=== PATIENT | male | born 1955 | race Caucasian/White ===

== ENCOUNTER → 2016-04-03 | Day surgery (SDC) | payer OTHER ==
[2012-10-27 03:06] VITALS: BMI 29.1
--- NOTE | 2016-04-02 19:22 | SC.ANESPOS ---
Post-Anesthesia Note LOC: [facility] Calling Post-Anesthesia Assessment: Awake, Returned to Baseline, Hemodynamically Stable , Pain Control Adequate Phase I & II Recovery Complete: Yes Apparent Anesthesia Complication: No : N PACU Discharge Time: 12:30 - Vital Signs Blood Pressure: 134/78 Pulse: 78 Resp Rate: 20 O2 Sat: 96 Temp: 99.2 F - Comments Anesthesia Discharge Time Report Time 12:30
[~2016-04-03] MED LIST: Acetaminophen, Intravenous 1,000 MG/100 ML IVBOT IV ONE; BUPIVACAINE 0.25%-EPINEPHRINE 1:200,000 30 ML ONE; DEXAMETHASONE 4 MG/ML VIAL IV ONE; FENTANYL 100 MCG/2 ML VIAL IV PRN; FENTANYL 250 MCG/5 ML VIAL IV ONE; GLYCOPYRROLATE 1 MG VIAL IM ONE; HYDROmorphone 1 MG INJECTION IV PRN; HYDROmorphone 1 MG INJECTION ONE; LABETALOL 20 MG/4 ML SYRINGE IV PRN; LIDOCAINE 4% 5 ML AMPULE NEB ONE; Levofloxacin 500 mg/100 ml D5W 500 MG/100 ML RTU IV ONE; MEPERIDINE 25 MG/ML TUBEX IV PRN; METOCLOPRAMIDE 10 MG/2 ML VIAL IV ONE; MIDAZOLAM 2 MG/2 ML VIAL IV ONE; NEOSTIGMINE 1 MG/1 ML (1:1000) INJ 10 ML MDV IM ONE; ONDANSETRON HCL 4 MG ODT TAB PO PRN; ONDANSETRON HCL 4 MG/2 ML VIAL IV ONE; ONDANSETRON HCL 4 MG/2 ML VIAL IV PRN; PROMETHAZINE 25 MG/ML VIAL IV PRN; PROPOFOL 200 MG/20 ML VIAL IV ONE; ROCURONIUM 50 MG/5 ML VIAL IV ONE; TRAMADOL 37.5 MG/ACETAMINOPHEN 325 MG TAB PO PRN; hydrALAZINE 20 MG/ML VIAL IV PRN
--- NOTE | 2016-04-03 07:53 | HIM.ANES ---
Anesthesia Evaluation & Plan Diagnoses: INCISIONAL HERNIA WITHOUT OBSTRUCTION OR GANGRENE (04/03/16) - Focused Review of Systems Cardiac History: Yes: Hx Cardiac Disorders, Hx Abnormal Cholesterol/ Hyperlipidemia HEENT: Yes: Hx Vision Problem (WEARS GLASSES), Hx Ear Problem (RINGING IN EAR), Other HEENT Problems Hx Other HEENT Surgery: SINUS SURGERY X3 Hx Other HEENT Problems: CHRONIC SINNUSITIS Respiratory: Yes: Hx Asthma, Hx Snoring Gastrointestinal: Yes: Hx Gastroesophageal Reflux Disease, Hx Gastrointestinal Disorders, Hx Colonoscopy (03/2014) Neurological/Musculoskeletal: Yes: Hx Back Pain (WITH HEAVY LOAD) No: Hx Neurological Disorders Psychological: Yes Hx Anxiety (SON 5 YEARS AGO.), Yes Hx Depression, Yes Hx Mental/Emotional Disorders Blood/Autoimmune: No: Hx AIDS, Hx Hepatitis (type) Smoking Status: Never smoker Other Surgical History: SINUS SURGERY X3 2013 COLON RESECTION AND UMBILICAL HERNIA REPAIR - Focused Physical Exam NPO since: after Midnight Mallampati: Class II Thyromental Distance: Greater than 3 Neck: Full Range of Motion Cardiovascular/Chest: Normal Respiratory: Lungs clear Any problems with anesthesia, including nausea and vomiting?: Yes (N&V) Does the patient have a history of Motion Sickness-: Yes Other: Allergies Allergy/AdvReac Type Severity Reaction Status Date / Time codeine Allergy Severe Nausea/Vomi Verified 04/03/16 07:45 ting morphine Allergy Severe Nausea/Vomi Verified 04/03/16 07:45 ting cefuroxime axetil Allergy Intermediate Rash-Genera Verified 04/03/16 07:45 [From Ceftin] lized clarithromycin [From Biaxin] Allergy Intermediate Rash-Genera Verified 04/03/16 07:45 lized ascorbic acid [From MoviPrep] Allergy Headache Verified 04/03/16 07:47 grape Allergy Hives* Verified 04/03/16 07:45 polyethylene glycol 3350 Allergy Headache Verified 04/03/16 07:47 [From MoviPrep] potassium chloride* Allergy Headache Verified 04/03/16 07:47 [From MoviPrep] sodium chloride Allergy Headache Verified 04/03/16 07:47 [From MoviPrep] sodium sulfate Allergy Headache Verified 04/03/16 07:47 [From MoviPrep] ARTIFICIAL SWEETNERS Allergy Headache Uncoded 04/03/16 07:45 Home Medications Medication Instructions Recorded Last Taken Type Albuterol Sulfate [Proventil Hfa] 2 puff INH Q6-8H PRN 10/24/12 10/11/12 History Azelastine HCl [Astelin] 1 spray ANALI DAILY 10/24/12 10/25/14 12:00 History Budesonide/Formoterol Fumarate 2 puff INH BID 10/24/12 10/25/14 23:30 History [Symbicort 160-4.5 Mcg Inhaler] Cholecalciferol (Vitamin D3) 2,000 unit PO DAILY 10/24/12 10/23/12 12:00 History [Vitamin D3 (cholecalciferol)] Fenofibrate 160 mg PO DAILY 10/24/12 10/25/14 23:30 History Guaifenesin/Phenylephrine HCl 1 each PO Q4H PRN 10/24/12 3 Days Ago History [Guaifenesin-Phenylephrine Tab] Ibuprofen 400 mg PO Q4-6H PRN 10/24/12 10/25/14 12:00 History Mometasone Furoate [Nasonex] 1 spray NS .EVENING 10/24/12 10/25/14 23:30 History Omeprazole 20 mg PO DAILY 10/24/12 10/25/14 23:30 History Zafirlukast [Accolate] 20 mg PO BID 10/24/12 10/25/14 23:30 History Alprazolam [Xanax] 1 mg PO HS PRN 10/23/14 10/22/14 History Diazepam [Valium] 10 mg PO BID PRN 03/30/16 Unknown History Height and Weight Patient's height 5 ft 10 in Patient's weight 87.09 kg BMI 29.1 - Anesthetic Plan Anesthesia Type: General ASA Class: 3 -: I have examined this patient and reviewed the medical record. The patient has been assessed prior to anesthesia. Risks and benefits of anesthesia and anesthetic technique options have been discussed and all questions answered. The patient accepts the risk and desires me to proceed with the planned anesthetic.
--- NOTE | 2016-04-03 10:40 | HIMOPRPT ---
DATE OF PROCEDURE: 04/03/16 PREOPERATIVE DIAGNOSES: Recurrent ventral incisional hernia. POSTOPERATIVE DIAGNOSES: Recurrent ventral incisional hernia. PROCEDURES: Laparoscopic repair of recurrent ventral incisional hernia. SURGEON: Dickson Myrick MD ANESTHESIA: General. COMPLICATIONS: None. ESTIMATED BLOOD LOSS: Minimal. ANTIBIOTICS: Preoperative antibiotics given. INDICATIONS: The patient is a very pleasant 61-year-old male who had been found to have a recurrent ventral incisional hernia. We felt he would benefit from hernia repair and explained the risks and benefits of this to him. He understood the risk of infection, bleeding and anesthesia as well as a well- known risk of recurrence and bowel injury. He understood the risk of mesh prostheses. The patient agreed was brought for the above-mentioned procedure. OPERATIVE NOTE: Patient was brought to the operating room and placed on the operating table in the supine position. After adequate amount of general anesthesia he was prepped and draped in sterile manner. When given the okay by anesthesia after appropriate time-out an Optiview trocar was placed in the left upper quadrant without any problems. Two other trocars were placed on the left side 1 was placed on the right. We used Harmonic scalpel dissection to take down the falciform ligament. There were several hernia defects we chose a large piece of surgeon mesh and placed stay sutures in the mesh and then placed this in the perineum without any problems. We used a suture Passer to bring the stay sutures out and tied these down a fixing the mesh in good position. We then used secure strap tacks throughout and then secure strap tacks around the edges. With the mesh in excellent position and overlap of over 4 cm circumferentially around the defect we felt we had excellent repair. We went ahead after assuring hemostasis placed Seprafilm in the usual manner. The trocars were then removed and a 1. Vicryl suture was used to bring the 12 mm trocar site together. All wounds were irrigated and brought together with 4 0 Monocryls and then Dermabond tissue adhesive was applied. The patient was awoke and taken recover room in excellent condition with correct sponge counts needle counts.
[2016-04-03 12:37] VITALS: TEMP 99.2
[2016-04-03 14:48] VITALS: PULSE 78
--- NOTE | 2016-04-03 15:42 | SC.ANESPOS ---
Post-Anesthesia Note LOC: Fully Awake Post-Anesthesia Assessment: Awake, Returned to Baseline, Hemodynamically Stable , Pain Control Adequate Phase I & II Recovery Complete: Yes Apparent Anesthesia Complication: No : N PACU Discharge Time: 12:30 - Vital Signs Blood Pressure: 134/78 Pulse: 78 Resp Rate: 20 O2 Sat: 96 Temp: 99.2 F - Comments Anesthesia Discharge Time Report Time 12:30
[2016-04-03 15:47] VITALS: BP 149/80
== END ==
LOC: SDC 07:18
PROVIDERS: ATTEND Surgery
PROC: 0WUF4JZ Supplement Abdominal Wall with Synthetic Substitute, Percutaneous Endoscopic Approach (ICD-10-PCS; principal; 2016-04-03 08:45)
DX: K43.2 Incisional hernia without obstruction or gangrene (principal); J45.909 Unspecified asthma, uncomplicated; E78.5 Hyperlipidemia, unspecified; K21.9 Gastro-esophageal reflux disease without esophagitis; F41.9 Anxiety disorder, unspecified; F32.9 Major depressive disorder, single episode, unspecified; Z79.899 Other long term (current) drug therapy
CPT/HCPCS: 49656; C1781; J0131; J1170; J1956; J3490; J1100; J2250; J2405; J2710; J2765; J3010